=== PATIENT | female | born 1970 | race Caucasian/White ===

== ENCOUNTER 2020-07-17 13:24 | Outpatient (REF) | payer OTHER, SELFPAY ==
[2020-07-17 13:41] LABS: COVID-19 Test Negative (Negative)
== END 2020-07-17 13:25 | disposition home or self-care (01) ==
LOC: HO.EMPCOV 13:24
PROVIDERS: Visit Provider Internal Medicine
DX: Z20.822 Contact with and (suspected) exposure to COVID-19 (principal)
CPT/HCPCS: 36415; 87635; C9803

== ENCOUNTER 2020-11-28 09:56 | Outpatient (REF) | payer OTHER, SELFPAY ==
[2020-11-28 11:49] LABS: TSH reflex Free T4 4.19 uIU/mL (0.32-4.0)
[2020-11-28 12:29] LABS: Free T4 (Free Thyroxine) 0.99 ng/dL (0.71-1.85)
== END 2020-11-28 09:57 | disposition home or self-care (01) ==
LOC: HO.LAB 09:56
PROVIDERS: PCP Internal Medicine; Visit Provider Internal Medicine
DX: E03.9 Hypothyroidism, unspecified (principal)
CPT/HCPCS: 36415; 84439; 84443